=== PATIENT | female | born 1950 | race American Indian/Alaskan Native ===

== ENCOUNTER 2019-07-12 08:00 | Emergency (ER) | payer SELFPAY ==
--- NOTE | 2019-07-12 09:56 | Emergency Department Report ---
Blank Doc - Documentation Documentation: I went to the room to examine the patient however patient is not in the room. Patient stated that she call the patient to come to the room but she did not see the patient and leave.
--- NOTE | 2019-07-12 10:33 | Emergency Department Report ---
ED General Adult HPI - General Chief complaint: Headache Stated complaint: HEAD/THROAT PAIN Time Seen by Provider: 07/12/19 09:52 Source: patient Mode of arrival: Ambulatory Limitations: No Limitations - History of Present Illness Initial comments: Patient is 68 years old female with no significant past medical history except for hypertension for which patient is taking no medication. Patient presented to the ER complaining of right parotid area and right mandibular area pain and tenderness associated with temporal headache. Patient stated that symptoms started a few weeks back but since yesterday he became more intense. Patient denied any fever, chills, nausea or vomiting. Patient denied any neck pain or stiffness. Patient also denied any weakness numbness or tingling sensation. Patient also denied any chest pain or shortness of breath. - Related Data Allergies Allergy/AdvReac Type Severity Reaction Status Date / Time No Known Allergies Allergy Unverified 07/12/19 08:06 ED Review of Systems ROS: Stated complaint: HEAD/THROAT PAIN Other details as noted in HPI Comment: All other systems reviewed and negative Constitutional: denies: chills, fever ENT: ear pain, dental pain Cardiovascular: denies: chest pain, palpitations, dyspnea on exertion Gastrointestinal: denies: abdominal pain, nausea, vomiting, diarrhea, con stipation, hematemesis, melena, hematochezia Musculoskeletal: denies: back pain Neurological: headache. denies: weakness, numbness, paresthesias, confusion, abnormal gait ED Past Medical Hx - Past Medical History Previous Medical History?: Yes Hx Hypertension: Yes (no meds) - Surgical History Past Surgical History?: No - Social History Smoking Status: Current Some Day Smoker Substance Use Type: Alcohol, Marijuana ED Physical Exam - General Limitations: No Limitations General appearance: alert, in no apparent distress - Head Head exam: Present: atraumatic, normocephalic, normal inspection - Eye Eye exam: Present: normal appearance - ENT ENT exam: Present: mucous membranes moist, other (right parotid gland tenderness, right mandibular jaw tenderness.) - Neck Neck exam: Present: normal inspection, full ROM. Absent: tenderness, meningismus, lymphadenopathy, thyromegaly - Respiratory Respiratory exam: Present: normal lung sounds bilaterally - Cardiovascular Cardiovascular Exam: Present: regular rate, normal rhythm, normal heart sounds - GI/Abdominal GI/Abdominal exam: Present: soft, normal bowel sounds. Absent: distended, tenderness, guarding, rebound, rigid, organomegaly, mass, bruit, pulsatile mass, hernia - Extremities Exam Extremities exam: Present: normal inspection, full ROM, normal capillary refill. Absent: tenderness, pedal edema, joint swelling, calf tenderness - Back Exam Back exam: Present: normal inspection, full ROM. Absent: CVA tenderness (R), CVA tenderness (L), muscle spasm, paraspinal tenderness, vertebral tenderness - Neurological Exam Neurological exam: Present: alert, oriented X3, CN II-XII intact, normal gait, reflexes normal - Psychiatric Psychiatric exam: Present: normal mood - Skin Skin exam: Present: warm, intact, normal color ED Course Vital Signs 07/12/19 07/12/19 08:06 11:51 Temperature 98.2 F Pulse Rate 86 77 Respiratory 18 Rate Blood Pressure 199/97 188/97 O2 Sat by Pulse 98 Oximetry ED Medical Decision Making - Lab Data Result diagrams: 07/12/19 10:50 07/12/19 10:50 - Radiology Data Radiology results: report reviewed - Medical Decision Making Patient is 68 years old female with no significant past medical history except f or hypertension for which patient is taking no medication. Patient presented to the ER complaining of right parotid area and right mandibular area pain and tenderness associated with temporal headache. Patient stated that symptoms started a few weeks back but since yesterday he became more intense. Patient denied any fever, chills, nausea or vomiting. Patient denied any neck pain or stiffness. Patient also denied any weakness numbness or tingling sensation. Patient also denied any chest pain or shortness of breath. Labs reviewed and is unremarkable. CT facial showed a symmetrical swelling of the parotid gland. CT brain is negative for acute finding. Patient treated with clonidine 0.1 mg for elevated blood pressure was significant improvement. Patient clinical history and CT finding consistent with parotitis. Patient is started on Naprosyn, Norvasc 5 mg, and [place] 5 mg and Zofran. Advised to follow-up with her primary care physician in the next 2-3 days and to return to the ER if her symptoms are not improved. Critical care attestation.: If time is entered above; I have spent that time in minutes in the direct care of this critically ill patient, excluding procedure time. ED Disposition Clinical Impression: Headache, Malignant hypertension, Parotitis, acute Disposition: TO HOME OR SELFCARE Is pt being admited?: No Condition: Stable Instructions: Hypertension (ED), Sialoadenitis (ED), Acute Headache (ED) Referrals: PRIMARY CARE,MD [Referring] - 3-5 Days
--- NOTE | 2019-07-12 11:08 | Cat Scan Report ---
CT brain without contrast INDICATION: Altered mental status. TECHNIQUE: Routine CT head without contrast. All CT scans at this location are performed using CT dos e reduction for ALARA by means of automated exposure control. COMPARISON: None. FINDINGS: BRAIN / INTRACRANIAL CONTENTS: No acute hemorrhage, mass effect, midline shift, or hydrocephalus. No appreciable acute large territorial or lacunar infarct. Atherosclerotic calcification is noted in the cavernous ICA segments. ORBITS: No significant abnormality of visualized orbits. SINUSES / MASTOIDS: No significant abnormality of visualized sinuses and mastoid air cells. ADDITIONAL FINDINGS: The calvarium is intact. IMPRESSION: 1. No acute intracranial abnormality. Signer Name: Rodger Alvarado MD Signed: 07/12/2019 11:04 AM Workstation Name: [id number]
--- NOTE | 2019-07-12 11:15 | Cat Scan Report ---
CT MAXILLOFACIAL WITHOUT CONTRAST INDICATION / CLINICAL INFORMATION: right parotid and mandibular pain and tenderness. TECHNIQUE: All CT scans at this location are performed using CT dose reduction for ALARA by means of automated e xposure control. COMPARISON: None available. FINDINGS: FACIAL BONES: No fracture or other significant abnormality. PARANASAL SINUSES: Dependent fluid level in the left maxillary sinus. Other sinuses are clear. Mastoi d air cells are clear. ORBITS: No significant abnormality. VISUALIZED INTRACRANIAL STRUCTURES: No significant abnormality. ADDITIONAL FINDINGS: Within limitations imposed by noncontrast technique, no cervical lymphadenopathy , fluid collection or right parotid mass. There is possibly mild, symmetric swelling of both parotid glands, which could be from parotiditis. IMPRESSION: 1. No acute bony abnormality. 2. Fluid level in left maxillary sinus. Correlate for additional evidence of acute maxillary sinusiti s. 3. No significant abnormality of the mandible. Possible mild, symmetric swelling of the parotid gland s. Signer Name: Rodger Alvarado MD Signed: 07/12/2019 11:11 AM Workstation Name: [id number]
[2019-07-12] MEDS ORDERED: cloNIDine 0.1 MG TAB PO ONE (11:41)
[2019-07-12 11:56] LABS: Basophils # (Auto) 0.1 K/mm3 (0.0-0.1); Basophils % (Auto) 0.9 % (0.0-1.8); Eosinophils # (Auto) 0.2 K/mm3 (0.0-0.4); Eosinophils % (Auto) 3.2 % (0.0-4.3); Hematocrit 41.2 % (30.3-42.9); Hemoglobin 13.8 gm/dl (10.1-14.3); Lymphocytes # (Auto) 2.1 K/mm3 (1.2-5.4); Lymphocytes % (Auto) 37.6 % (13.4-35.0); Mean Corpuscular HGB Conc 34 % (30-34); Mean Corpuscular Volume 92 fl (79-97); Monocytes # (Auto) 0.3 K/mm3 (0.0-0.8); Monocytes % (Auto) 4.5 % (0.0-7.3); Platelet Count 275 K/mm3 (140-440); Red Blood Count 4.46 M/mm3 (3.65-5.03); Red Cell Distribution Width 14.9 % (13.2-15.2)
[2019-07-12 12:11] LABS: BUN/Creatinine Ratio 10; Blood Urea Nitrogen 8 mg/dL (7-17); Calcium 9.7 mg/dL (8.4-10.2); Hemolysis Index 0
[2019-07-12 12:35] VITALS: BP 154/92
== END 2019-07-12 12:30 | disposition home or self-care (01) ==
LOC: ED 08:00
DX: R51 Headache (principal); I10 Essential (primary) hypertension; K11.20 Sialoadenitis, unspecified; F17.200 Nicotine dependence, unspecified, uncomplicated; F10.10 Alcohol abuse, uncomplicated; F12.10 Cannabis abuse, uncomplicated
CPT/HCPCS: 36415; 70450; 70486; 80048; 85025

== ENCOUNTER 2019-07-14 23:14 | Emergency (ER) | payer SELFPAY ==
[2019-07-15 03:10] VITALS: BP 155/69
== END 2019-07-15 06:29 | disposition left against medical advice (07) ==
LOC: ED 23:14
DX: G50.1 Atypical facial pain (principal); Z53.21 Procedure and treatment not carried out due to patient leaving prior to being seen by health care provider

== ENCOUNTER 2020-06-26 07:50 | Emergency (ER) | payer MEDICARE ==
[2020-06-26 08:10] VITALS: BP 132/70
--- NOTE | 2020-06-26 10:35 | Emergency Department Report ---
ED ENT HPI - General Chief complaint: Dental/Oral Stated complaint: GUM SWOLLEN/RT BACK Time Seen by Provider: 06/26/20 10:31 Source: patient Mode of arrival: Ambulatory Limitations: No Limitations - History of Present Illness Initial comments: Patient is a 69-year-old female presents emergency room with complaints of right lower dental pain that began 2 to 3 days ago. She states that she also noticed a lump on the right lower gum. She states that it is causing right-sided facial pain. She denies any fever, vomiting, diarrhea, facial swelling, difficulty swallowing, difficulty breathing. He states that she has an appointment with a dentist on 07/04/2020. She states that she last saw a dentist 5 months ago and it was advised that she needs to have all of her teeth pulled. No past medical history. No allergies to medications. - Related Data Previous Rx's Medication Instructions Recorded Last Taken Type HYDROcodone/APAP 5-325 [[place] 1 each PO Q6HR PRN #14 tablet 07/12/19 Unknown Rx 5/325] Naproxen [Naprosyn] 500 mg PO BID #14 tablet 07/12/19 Unknown Rx Ondansetron [Zofran Odt] 4 mg PO Q8HR PRN #14 tab.rapdis 07/12/19 Unknown Rx amLODIPine [Norvasc] 5 mg PO DAILY #30 tab 07/12/19 Unknown Rx Acetaminophen [Tylenol] 650 mg PO Q8HR PRN #20 capsule 06/26/20 Unknown Rx Chlorhexidine Mouthwash [Peridex] 15 ml MM BID #1 bottle 06/26/20 Unknown Rx Penicillin Vk [Veetids TAB] 500 mg PO QID 7 Days #56 tablet 06/26/20 Unknown Rx Allergies Allergy/AdvReac Type Severity Reaction Status Date / Time No Known Allergies Allergy Unverified 07/12/19 08:06 ED Dental HPI - General Chief complaint: Dental/Oral Stated complaint: GUM SWOLLEN/RT BACK Time Seen by Provider: 06/26/20 10:31 Source: patient Mode of arrival: Ambulatory Limitations: No Limitations - Related Data Previous Rx's Medication Instructions Recorded Last Taken Type HYDROcodone/APAP 5-325 [[place] 1 each PO Q6HR PRN #14 tablet 07/12/19 Unknown Rx 5/325] Naproxen [Naprosyn] 500 mg PO BID #14 tablet 07/12/19 Unknown Rx Ondansetron [Zofran Odt] 4 mg PO Q8HR PRN #14 tab.rapdis 07/12/19 Unknown Rx amLODIPine [Norvasc] 5 mg PO DAILY #30 tab 07/12/19 Unknown Rx Acetaminophen [Tylenol] 650 mg PO Q8HR PRN #20 capsule 06/26/20 Unknown Rx Chlorhexidine Mouthwash [Peridex] 15 ml MM BID #1 bottle 06/26/20 Unknown Rx Penicillin Vk [Veetids TAB] 500 mg PO QID 7 Days #56 tablet 06/26/20 Unknown Rx Allergies Allergy/AdvReac Type Severity Reaction Status Date / Time No Known Allergies Allergy Unverified 07/12/19 08:06 ED Review of Systems ROS: Stated complaint: GUM SWOLLEN/RT BACK Other details as noted in HPI Comment: All other systems reviewed and negative ED Past Medical Hx - Past Medical History Previous Medical History?: Yes Hx Hypertension: Yes (no meds) - Social History Smoking Status: Current Some Day Smoker - Medications Home Medications: Home Medications Medication Instructions Recorded Confirmed Last Taken Type HYDROcodone/APAP 5-325 [[place] 1 each PO Q6HR PRN #14 tablet 07/12/19 Unknown Rx 5/325] Naproxen [Naprosyn] 500 mg PO BID #14 tablet 07/12/19 Unknown Rx Ondansetron [Zofran Odt] 4 mg PO Q8HR PRN #14 tab.rapdis 07/12/19 Unknown Rx amLODIPine [Norvasc] 5 mg PO DAILY #30 tab 07/12/19 Unknown Rx Acetaminophen [Tylenol] 650 mg PO Q8HR PRN #20 capsule 06/26/20 Unknown Rx Chlorhexidine Mouthwash [Peridex] 15 ml MM BID #1 bottle 06/26/20 Unknown Rx Penicillin Vk [Veetids TAB] 500 mg PO QID 7 Days #56 tablet 06/26/20 Unknown Rx ED Physical Exam - General Limitations: No Limitations General appearance: alert, in no apparent distress - Head Head exam: Present: atraumatic, normocephalic - Eye Eye exam: Present: normal appearance - ENT ENT exam: Present: mucous membranes moist, other (poor dentition, multiple areas of dental decay, there is induration to the right lower guline near the back molar, there are several missing teeth, no fluctuance, no facial edema, uvula is midline, no uvular edema or devation, no tongue elevation, no muffled voice ) - Respiratory Respiratory exam: Present: normal lung sounds bilaterally. Absent: respiratory distress, wheezes, rales, rhonchi, stridor, chest wall tenderness, accessory muscle use, decreased breath sounds, prolonged expiratory - Cardiovascular Cardiovascular Exam: Present: regular rate, normal rhythm, normal heart sounds. Absent: systolic murmur, diastolic murmur, rubs, gallop - Neurological Exam Neurological exam: Present: alert, oriented X3 - Psychiatric Psychiatric exam: Present: normal affect, normal mood - Skin Skin exam: Present: warm, dry, intact ED Course Vital Signs 06/26/20 06/26/20 08:07 08:08 Temperature 98.2 F Pulse Rate 88 Respiratory 16 Rate Blood Pressure 132/70 [Right] O2 Sat by Pulse 98 Oximetry ED Medical Decision Making - Lab Data Vital Signs 06/26/20 06/26/20 08:07 08:08 Temperature 98.2 F Pulse Rate 88 Respiratory 16 Rate Blood Pressure 132/70 [Right] O2 Sat by Pulse 98 Oximetry - Medical Decision Making Patient is a 69-year-old female presents emergency room with complaints of right lower dental pain that began 2 to 3 days ago. She states that she also noticed a lump on the right lower gum. She states that it is causing right-sided facial pain. She denies any fever, vomiting, diarrhea, facial swelling, difficulty swallowing, difficulty breathing. He states that she has an appointment with a dentist on 07/04/2020. She states that she last saw a dentist 5 months ago and it was advised that she needs to have all of her teeth pulled. No past medical history. No allergies to medications. VSS. on exam: poor dentition, multiple areas of dental decay, there is induration to the right lower guline near the back molar, there are several missing teeth, no fluctuance, no facial edema, uvula is midline, no uvular edema or devation, no tongue elevation, no muffled voice. Examination appears consistent with dental caries and possible early dental abscess versus gingivitis. No signs of significant facial abscess, facial cellulitis, ludwigs. Patient given prescription for penicillin VK, chlorhexidine, Tylenol. Advised patient Please use medication as prescribed. Follow-up with a dentist. It is very important that you follow-up. Return to emergency room for any new or worsening symptoms. - Differential Diagnosis Dental caries, gingivitis, dental abscess Critical care attestation.: If time is entered above; I have spent that time in minutes in the direct care of this critically ill patient, excluding procedure time. ED Disposition Clinical Impression: Dental caries, Dental abscess Disposition: TO HOME OR SELFCARE Is pt being admited?: No Does the pt Need Aspirin: No Condition: Stable Instructions: Dental Abscess, [id number] Additional Instructions: Please use medication as prescribed. Follow-up with a dentist. It is very important that you follow-up. Return to emergency room for any new or worsening symptoms. Prescriptions: Chlorhexidine Mouthwash [Peridex] 15 ml MM BID #1 bottle Acetaminophen [Tylenol] 650 mg PO Q8HR PRN #20 capsule PRN Reason: pain Penicillin Vk [Veetids TAB] 500 mg PO QID 7 Days #56 tablet Referrals: GILBERTO WELLS [Other] - 2-3 Days [facility] [Outside] - 2-3 [address] [facility] [Outside] - 2-3 Days Time of Disposition: 10:34 Print Language: SINHALA
== END 2020-06-26 11:05 | disposition home or self-care (01) ==
LOC: ED 07:50
DX: K04.7 Periapical abscess without sinus (principal); K02.9 Dental caries, unspecified; I10 Essential (primary) hypertension; F17.200 Nicotine dependence, unspecified, uncomplicated; Z79.899 Other long term (current) drug therapy
CPT/HCPCS: 99282